=== PATIENT | male | born 1960 | race African-American/Black ===

== ENCOUNTER 2017-01-30 06:28 | Emergency (ER) | payer OTHER ==
[2017-01-30 06:35] VITALS: TEMP 96.8
--- NOTE | 2017-01-30 07:25 | ED ---
General Adult HPI - General Chief complaint: Fall Stated complaint: ETOH Time Seen by Provider: 01/30/17 07:00 Source: police, EMS, RN notes reviewed Mode of arrival: EMS - History of Present Illness Initial comments: This is a 56-year-old male who presents emergency Department without complaint. Patient was brought in by the police because neighbor called because the patient had fallen down the driveway was having difficulty walking. When police assess the patient he was still having difficulty walking so they brought him to us. Patient denies any injury to the police did not note any injury. There was no signs of blood on the driveway on the patient. Patient insists he is just intoxicated and wants to go home. Police will not take him home. - Related Data Home Medications Medication Instructions Recorded Confirmed Indomethacin [Indocin] 50 mg PO DAILY 06/06/14 06/06/14 Pantoprazole Sodium [Protonix] 40 mg PO DAILY 06/06/14 06/06/14 amLODIPine [Norvasc] 10 mg PO DAILY 06/06/14 06/06/14 Previous Rx's Medication Instructions Recorded Indomethacin [Indocin] 50 mg PO TID PRN #15 capsule 06/06/14 traMADol HCl [Ultram] 50 mg PO Q4H PRN #20 tab 06/06/14 Allergies Allergy/AdvReac Type Severity Reaction Status Date / Time No Known Allergies Allergy Verified 06/06/14 16:06 Review of Systems ROS Statement: Those systems with pertinent positive or pertinent negative responses have been documented in the HPI. ROS Other: All systems not noted in ROS Statement are negative. Past Medical History Past Medical History: Hypertension Additional Past Medical History / Comment(s): gout History of Any Multi-Drug Resistant Organisms: None Reported Past Surgical History: Tonsillectomy Additional Past Surgical History / Comment(s): knee arthroscopy Past Psychological History: No Psychological Hx Reported Smoking Status: Current every day smoker Past Alcohol Use History: None Reported Past Drug Use History: None Reported General Exam - General Exam Comments Initial Comments: GENERAL: Patient is well-developed and well-nourished. Patient is nontoxic and well- hydrated and is in no acute distress. Patient is very intoxicated ENT: Neck is soft and supple. No significant lymphadenopathy is noted. Oropharynx is clear. Moist mucous membranes. Neck has full range of motion without eliciting any pain. EYES: The sclera were anicteric and conjunctiva were pink and moist. Extraocular movements were intact and pupils were equal round and reactive to light. Eyelids were unremarkable. PULMONARY: Unlabored respirations. Good breath sounds bilaterally. No audible rales rhonchi or wheezing was noted. CARDIOVASCULAR: There is a regular rate and rhythm without any murmurs gallops or rubs. ABDOMEN: Soft and nontender with normal bowel sounds. No palpable organomegaly was noted. There is no palpable pulsatile mass. SKIN: Skin is clear with no lesions or rashes and otherwise unremarkable. NEUROLOGIC: Patient is alert and oriented x3. Cranial nerves II through XII are grossly intact. Motor and sensory are also intact. Normal speech, volume and content. Symmetrical smile. MUSCULOSKELETAL: Normal extremities with adequate strength and full range of motion. No lower extremity swelling or edema. No calf tenderness. LYMPHATICS: No significant lymphadenopathy is noted PSYCHIATRIC: Normal psychiatric evaluation. Normal interpersonal interactions appears functionally intact in deals appropriately with others. No signs of depression. No signs of anxiety. Course Vital Signs 01/30/17 01/30/17 06:31 10:35 Temperature 96.8 F L Pulse Rate 71 79 Respiratory 18 16 Rate Blood Pressure 174/98 181/114 O2 Sat by Pulse 98 99 Oximetry Medical Decision Making - Medical Decision Making Patient woke up was alert and oriented 31 to go home he was able to ambulate without problem without staggering. Patient stated he was out of his Norvasc intact neurovascular one a Catapres. Patient wanted a prescription for high blood pressure medicines I wrote a prescription for Norvasc. Disposition Clinical Impression: Alcohol intoxication, Hypertension Disposition: HOME SELF-CARE Instructions: Abuse of Alcohol (ED) Referrals: Nelson Woodard DO [Primary Care Provider] - 1-2 days Time of Disposition: 10:20
[2017-01-30] MEDS ORDERED: ACETAMINOPHEN TAB 500 MG TAB PO STA (10:28)
[2017-01-30] MEDS ORDERED: IBUPROFEN 800 MG TAB PO STA (10:28)
[2017-01-30 10:36] VITALS: BP 181/114; PULSE 79; RESP 16
[2017-01-30] MEDS ORDERED: cloNIDine HCL 0.1 MG TAB PO STA (10:39)
[2017-01-30] MEDS ORDERED: amLODIPine 10 MG TAB PO STA (10:39)
== END 2017-01-30 11:03 | disposition home or self-care (01) ==
LOC: EC 06:28
DX: F10.129 Alcohol abuse with intoxication, unspecified (principal); I10 Essential (primary) hypertension; M10.9 Gout, unspecified; F17.200 Nicotine dependence, unspecified, uncomplicated; Z79.1 Long term (current) use of non-steroidal anti-inflammatories (NSAID); Z79.899 Other long term (current) drug therapy
CPT/HCPCS: 99283

== ENCOUNTER 2017-07-04 17:43 | Emergency (ER) | payer OTHER ==
[2017-07-04 18:05] VITALS: BP 143/89; PULSE 86; RESP 16; TEMP 97.6
== END 2017-07-04 19:16 | disposition home or self-care (01) ==
LOC: EC 17:43
DX: Z03.89 Encounter for observation for other suspected diseases and conditions ruled out (principal)

== ENCOUNTER → 2022-04-29 | Outpatient (CLI) | payer OTHER ==
--- NOTE | 2022-04-29 10:13 | US ---
EXAMINATION TYPE: US liver DATE OF EXAM: 04/29/2022 COMPARISON: NONE CLINICAL HISTORY: B18.2 CHRONIC VIRAL HEPATITIS C. TECHNIQUE: Multiple sonographic images of the right upper quadrant are obtained. FINDINGS: EXAM MEASUREMENTS: Liver Length: 14.7 cm Gallbladder Wall: 0.18 cm CBD: 0.84 cm Right Kidney: 9.5 x 3.3 x 4.5 cm Pancreas: wnl Liver: wnl Gallbladder: Protrusion 0.46 x0.81 x 0.57cm, possible diverticulum Evidence for sonographic Ventura's sign: No CBD: Prominent at head of pancreas Right Kidney: wnl IMPRESSION: 1. Small gallbladder diverticulum. 2. Common bile duct is prominent which is of uncertain etiology. Consider MRCP if felt clinically ind icated.
== END | disposition home or self-care (01) ==
LOC: RADUSWWP 09:16
PROVIDERS: ATTEND Internal Medicine Gastroenterology
DX: B18.2 Chronic viral hepatitis C (principal); K82.8 Other specified diseases of gallbladder
CPT/HCPCS: 76705

== ENCOUNTER → 2022-06-17 | Outpatient (CLI) | payer OTHER ==
--- NOTE | 2022-06-17 09:21 | US ---
EXAMINATION TYPE: US thyroid st tissue head/neck DATE OF EXAM: 06/17/2022 COMPARISON: NONE CLINICAL HISTORY: R59.0 LOCALIZED ENLARGED LYMPH NODES. left neck lump TECHNIQUE: Grayscale and color Doppler ultrasound images of the left neck in the patient's region of palpable abnormality were obtained. FINDINGS/IMPRESSION: There are 2 hypoechoic lesions with fatty hilum in the left neck in the patient' s region of palpable abnormality with the first measuring 0.8 x 0.3 x 0.4 cm. The other measures 1.0 x 0.4 x 0.4 cm. These are consistent with benign-appearing prominent lymph nodes are likely reactive.
== END | disposition home or self-care (01) ==
LOC: RADUSWWP 07:06
PROVIDERS: ATTEND Family Medicine
DX: R59.0 Localized enlarged lymph nodes (principal); R93.89 Abnormal findings on diagnostic imaging of other specified body structures
CPT/HCPCS: 76536

== ENCOUNTER → 2022-11-01 | Outpatient (CLI) | payer OTHER ==
[2022-11-01 23:06] LABS: Basophils # (A) 0.07 X 10*3/uL (0.00-0.10); Basophils % (A) 0.8 %; Eosinophils % (A) 1.1 %; HCT 45.5 % (39.6-50.0); Lymphocytes # (A) 3.73 X 10*3/uL (0.90-5.00); Lymphocytes % (A) 40.1 %; MCH 28.1 pg (27.0-32.0); MCV 85.4 FL (80.0-97.0); Mean Platelet Volume 10.3 FL (9.5-12.2); Monocytes # (A) 0.92 X 10*3/uL (0.20-1.00); Monocytes % (A) 9.9 %; NRBC Per 100 WBC 0 X 10*3/uL (0.00-0.01); Neutrophils # (A) 4.45 X 10*3/uL (1.80-7.70); Neutrophils % (A) 47.7 %; Platelet Count 242 X 10*3/uL (140-440); RBC 5.33 X 10*6/uL (4.40-5.60); RDW 14.6 % (11.5-14.5); WBC 9.31 X 10*3/uL (4.50-10.00)
[2022-11-02 08:09] LABS: ALT 24 U/L (10-49); AST 23 U/L (14-35); Albumin 4.4 d/dL (3.8-4.9); Albumin/Globulin Ratio 1.26 Ratio (1.60-3.17); Alkaline Phosphatase 101 U/L (41-126); Blood Urea Nitrogen 24.9 mg/dL (9.0-27.0); Calcium 9.7 mg/dL (8.7-10.3); Carbon Dioxide 19.2 mmol/L (21.6-31.8); Chloride 104 mmol/L (96-109); Globulin 3.5 d/dL (1.6-3.3); Glucose 89 mg/dL (70-110); Potassium 3.7 mmol/L (3.5-5.5); Sodium 139 mmol/L (135-145); Total Bilirubin 0.4 mg/dL (0.3-1.2); Total Protein 7.9 d/dL (6.2-8.2)
== END | disposition home or self-care (01) ==
LOC: LABWHC1 10:27
PROVIDERS: ATTEND Internal Medicine Gastroenterology
DX: B18.2 Chronic viral hepatitis C (principal)
CPT/HCPCS: 36415; 80053; 85025; 87522

== ENCOUNTER → 2023-11-21 | Outpatient (CLI) | payer OTHER ==
--- NOTE | 2023-11-21 12:17 | XR ---
EXAMINATION TYPE: XR knee complete bilateral DATE OF EXAM: 11/21/2023 10:51 AM CLINICAL INDICATION:Male, 63 years old with history of [id number], [id number]; [facility] COMPARISON: None. TECHNIQUE: XR knee complete bilateral; examined in Frontal, lateral and oblique projections. FINDINGS: No evidence of any acute osseous pathology, soft tissue swelling, or joint effusion is no hemalatha. Tricompartmental osteophyte formation involving the femoral condyles, tibial plateau and patella . Mild joint space narrowing. Atherosclerosis of the arterial vasculature. IMPRESSION: 1. No acute osseous pathology. 2. Mild moderate tricompartmental osteoarthritic changes.
== END | disposition home or self-care (01) ==
LOC: RADXRMAIN 10:35
PROVIDERS: ATTEND Nurse Practitioner Family
DX: M17.0 Bilateral primary osteoarthritis of knee (principal)